=== PATIENT | female | born 1985 | race Caucasian/White ===

== ENCOUNTER 2016-05-07 16:27 | Emergency (ER) | payer OTHER ==
[2016-05-07] MEDS ORDERED: ONDANSETRON 4 MG TAB.RAPDIS PO ONE (17:09)
--- NOTE | 2016-05-07 17:11 | ER Document Report ---
ED Medical Screen (RME) - General Chief Complaint: Nausea/Vomiting/Diarrhea Stated Complaint: DIARRHEA,VOMITING,DEHYDRATION Mode of Arrival: Ambulatory Information source: Patient Notes: 31 y/o F presents to ED c/o n/v/d since approximately 0400 this morning. Denies fever or abd pain. I have greeted and performed a rapid initial assessment of this patient. A comprehensive ED assessment and evaluation of the patient, analysis of test results and completion of the medical decision making process will be conducted by additional ED providers. TRAVEL OUTSIDE OF THE [place] IN LAST 30 DAYS: No - Related Data Allergies/Adverse Reactions: No Known Allergies Allergy (Unverified 05/07/16 17:09) Physical Exam - Vital signs Vitals: Temp Pulse Resp BP Pulse Ox 98.9 F 109 H 20 138/92 H 98 05/07/16 17:00 05/07/16 17:00 05/07/16 17:00 05/07/16 17:00 05/07/16 17:00 - General General appearance: Appears well, Alert In distress: None - Respiratory Respiratory status: No respiratory distress - Cardiovascular Pulses: Normal: Radial Normal capillary refill: Yes Course - Vital Signs Vital signs: Temp Pulse Resp BP Pulse Ox 98.9 F 109 H 20 138/92 H 98 05/07/16 17:00 05/07/16 17:00 05/07/16 17:00 05/07/16 17:00 05/07/16 17:00
[2016-05-07 18:13] LABS: APPEARANCE,URINE CLOUDY; BILIRUBIN,URINE NEGATIVE (NEGATIVE); GLUCOSE, URINE NEGATIVE (NEGATIVE); KETONES,URINE NEGATIVE (NEGATIVE); LEUKOCYTE ESTERASE,URINE LARGE (NEGATIVE); NITRITE,URINE NEGATIVE (NEGATIVE); PROTEIN,URINE NEGATIVE (NEGATIVE); URINE SPECIFIC GRAVITY 1.021; UROBILINOGEN,URINE NEGATIVE mg/dL (<2.0)
[2016-05-07 18:14] LABS: ALANINE AMINOTRANSFERASE 26 U/L (9-52); ALBUMIN 4.3 g/dL (3.5-5.0); ALKALINE PHOSPHATASE 83 U/L (38-126); ANION GAP 14 (5-19); ASPARTATE AMINO TRANSFERASE 16 U/L (14-36); BILIRUBIN,TOTAL 0.8 mg/dL (0.2-1.3); BLOOD UREA NITROGEN 9 mg/dL (7-20); CALCIUM 9.6 mg/dL (8.4-10.2); CARBON DIOXIDE 19 mmol/L (22-30); CHLORIDE 104 mmol/L (98-107); CREATININE RESULT 0.61 mg/dL (0.52-1.25); GLUCOSE 123 mg/dL (75-110); LIPASE 42.8 U/L (23-300); POTASSIUM 3.8 mmol/L (3.6-5.0); SODIUM 136.8 mmol/L (137-145)
[2016-05-07 18:19] LABS: ABSOLUTE LYMPHOCYTES (AUTO) 0.5 10^3/uL (0.5-4.7); ABSOLUTE MONOCYTES (AUTO) 0.3 10^3/uL (0.1-1.4); ABSOLUTE NEUT (AUTO) 9.6 10^3/uL (1.7-8.2); BASOPHILS % (AUTO) 0.2 % (0-2); EOSINOPHILS % (AUTO) 0.2 % (0-6); HEMATOCRIT 40.5 % (36.0-47.0); HEMOGLOBIN 13.7 g/dL (12.0-15.5); HGB HCT DIFFERENCE 0.6; LYMPHOCYTES % (AUTO) 5.2 % (13-45); MEAN CORPUSCULAR HEMOGLOBIN 29.4 pg (27.0-33.4); MEAN CORPUSCULAR HGB CONC 33.8 g/dL (32.0-36.0); MEAN CORPUSCULAR VOLUME 87 fl (80-97); MONOCYTES % (AUTO) 3.1 % (3-13); RED BLOOD COUNT 4.67 10^6/uL (3.72-5.28); RED CELL DISTRIBUTION WIDTH 13.1 % (11.5-14.0); SEGMENTED NEUTROPHILS % (AUTO) 91.3 % (42-78); WHITE BLOOD COUNT 10.5 10^3/uL (4.0-10.5)
--- NOTE | 2016-05-07 19:02 | ER Document Report ---
ED General - General Chief Complaint: Nausea/Vomiting/Diarrhea Stated Complaint: DIARRHEA,VOMITING,DEHYDRATION Mode of Arrival: Ambulatory Notes: Patient is a 31-year-old female at 9 weeks who presents with 12 hours of vomiting and diarrhea which have since stopped after arriving here in the emergency department. Symptoms were abrupt in onset and gradually resolved. She has been able to tolerate oral intake. She states that she has not had similar symptoms in the recent past. Multiple sick contacts with similar illness. Denies any bilious vomiting. No abdominal pain. No vaginal bleeding or discharge. Nothing improves or worsens or symptoms. She is not had a fever. She has not seen her primary care physician regarding today's concerns. TRAVEL OUTSIDE OF THE [place] IN LAST 30 DAYS: No - Related Data Allergies/Adverse Reactions: No Known Allergies Allergy (Unverified 05/07/16 17:09) Past Medical History - General Information source: Patient Last Menstrual Period: 02/19/16 - Social History Smoking Status: Never Smoker Chew tobacco use (# tins/day): No Frequency of alcohol use: None Drug Abuse: None Lives with: Spouse/Significant other Family History: Reviewed & Not Pertinent Patient has suicidal ideation: No Patient has homicidal ideation: No - Past Medical History Cardiac Medical History: Reports: Hx Hypertension Renal/ Medical History: Denies: Hx Peritoneal Dialysis Surgical Hx: Negative Review of Systems - Review of Systems Notes: Constitutional: Negative for fever. HENT: Negative for sore throat. Eyes: Negative for visual changes. Cardiovascular: Negative for chest pain. Respiratory: Negative for shortness of breath. Gastrointestinal: Negative for abdominal pain, positive for vomiting and diarrhea that have resolved Genitourinary: Negative for dysuria. Musculoskeletal: Negative for back pain. Skin: Negative for rash. Neurological: Negative for headaches, weakness or numbness. 10 point ROS negative except as marked above and in HPI. Physical Exam - Vital signs Vitals: Temp Pulse Resp BP Pulse Ox 98.9 F 109 H 20 138/92 H 98 05/07/16 17:00 05/07/16 17:00 05/07/16 17:00 05/07/16 17:00 05/07/16 17:00 Interpretation: Tachycardic Notes: PHYSICAL EXAMINATION: GENERAL: Well-appearing, well-nourished and in no acute distress. HEAD: Atraumatic, normocephalic. EYES: Pupils equal round and reactive to light, extraocular movements intact, sclera anicteric, conjunctiva are normal. ENT: nares patent, oropharynx clear without exudates. Moist mucous membranes. NECK: Normal range of motion, supple without lymphadenopathy LUNGS: Breath sounds clear to auscultation bilaterally and equal. No wheezes rales or rhonchi. HEART: Regular rate and rhythm without murmurs ABDOMEN: Soft, nontender, normoactive bowel sounds. No guarding, no rebound. No masses appreciated. EXTREMITIES: Normal range of motion, no pitting or edema. No cyanosis. NEUROLOGICAL: No focal neurological deficits. Moves all extremities spontaneously and on command. PSYCH: Normal mood, normal affect. SKIN: Warm, Dry, normal turgor, no rashes or lesions noted. Course - Re-evaluation Re-evalutation: 05/07/16 19:01 Presentation of an overall well-appearing patient in no acute distress with complaints of nausea, vomiting, diarrhea. This is consistent with likely viral gastroenteritis. Patient has no abdominal tenderness on exam and specifically no tenderness in the RLQ, LLQ, RUQ. Overall well hydrated on exam. Able to tolerate oral intake here in the emergency department. Low clinical suspicion for any acute life-threatening etiology based on exam and history including acute cholecystitis, SBO, appendicitis, nephrolithiasis, or pylonephritis. CMP without evidence of acute hepatitis or significant dehydration. Will plan for discharge at this time with return precautions and followup recommendations. - Vital Signs Vital signs: Temp Pulse Resp BP Pulse Ox 98.9 F 95 20 141/80 H 100 05/07/16 17:00 05/07/16 19:09 05/07/16 17:00 05/07/16 19:09 05/07/16 19:09 - Laboratory Result Diagrams: 05/07/16 17:45 05/07/16 17:45 Laboratory results interpreted by me: 05/07/16 05/07/16 05/07/16 17:32 17:45 17:45 Seg Neutrophils % 91.3 H Lymphocytes % 5.2 L Absolute Neutrophils 9.6 H Sodium 136.8 L Carbon Dioxide 19 L Glucose 123 H Beta HCG, Quant 10865.00 H Ur Leukocyte Esterase LARGE H Discharge - Discharge Clinical Impression: Vomiting and diarrhea Condition: Good Disposition: HOME, SELF-CARE Additional Instructions: Your symptoms are likely due to a viral illness and should resolve in the next several days. You can take [id number] loperamide also known as Imodium as needed for diarrhea per box instructions. Continue to stay hydrated with plenty of solution such as Gatorade or Pedialyte. You are being prescribed Zofran to take as needed for nausea and vomiting. Please return if you develop severe abdominal pain, pass out, become unable to tolerate any oral fluids for 12 more hours, or any other symptoms that are concerning to you. Referrals: VANESSA MALDONADO MD [Primary Care Provider] - Follow up tomorrow
[2016-05-07 19:36] VITALS: BP 141/80
== END 2016-05-07 19:09 | disposition home or self-care (01) ==
LOC: ER 16:27
DX: O21.9 Vomiting of pregnancy, unspecified (principal); O26.891 Other specified pregnancy related conditions, first trimester; R19.7 Diarrhea, unspecified; R00.0 Tachycardia, unspecified; O16.1 Unspecified maternal hypertension, first trimester; Z3A.09 9 weeks gestation of pregnancy
CPT/HCPCS: 36415; 80053; 81001; 83690; 84702; 85025; 99283

== ENCOUNTER 2016-05-11 17:55 | Emergency (ER) | payer OTHER ==
--- NOTE | 2016-05-11 19:09 | ER Document Report ---
ED Medical Screen (RME) - General Stated Complaint: VAGINAL BLEEDING Mode of Arrival: Ambulatory Information source: Patient Notes: Patient states she is currently 10 weeks had vaginal bleeding that started today. Patient denies any abdominal tenderness. No urinary symptoms. Patient is . hx: Hypertension I have greeted and performed a rapid initial assessment of this patient. A comprehensive ED assessment and evaluation of the patient, analysis of test results and completion of the medical decision making process will be conducted by additional ED providers. TRAVEL OUTSIDE OF THE [place] IN LAST 30 DAYS: No - Related Data Allergies/Adverse Reactions: No Known Allergies Allergy (Unverified 05/07/16 17:09) Past Medical History - Past Medical History Cardiac Medical History: Reports: Hx Hypertension Renal/ Medical History: Denies: Hx Peritoneal Dialysis Physical Exam - Vital signs Vitals: Temp Pulse Resp BP Pulse Ox 97.9 F 82 16 146/94 H 99 05/11/16 18:49 05/11/16 18:49 05/11/16 18:49 05/11/16 18:49 05/11/16 18:49 - General General appearance: Appears well, Alert In distress: None Course - Re-evaluation Re-evalutation: 05/11/16 19:[address] Ramírez who agrees with plan for ultrasound - Vital Signs Vital signs: Temp Pulse Resp BP Pulse Ox 97.9 F 82 16 146/94 H 99 05/11/16 18:49 05/11/16 18:49 05/11/16 18:49 05/11/16 18:49 05/11/16 18:49
[2016-05-11 19:53] LABS: ABSOLUTE EOSINOPHILS # (AUTO) 0.1 10^3/uL (0.0-0.6); ABSOLUTE LYMPHOCYTES (AUTO) 2.1 10^3/uL (0.5-4.7); ABSOLUTE MONOCYTES (AUTO) 0.6 10^3/uL (0.1-1.4); ABSOLUTE NEUT (AUTO) 6.5 10^3/uL (1.7-8.2); BASOPHILS % (AUTO) 0.3 % (0-2); EOSINOPHILS % (AUTO) 1.5 % (0-6); HEMATOCRIT 41.7 % (36.0-47.0); HEMOGLOBIN 14.1 g/dL (12.0-15.5); HGB HCT DIFFERENCE 0.6; LYMPHOCYTES % (AUTO) 22.7 % (13-45); MEAN CORPUSCULAR HEMOGLOBIN 29.1 pg (27.0-33.4); MEAN CORPUSCULAR HGB CONC 33.9 g/dL (32.0-36.0); MEAN CORPUSCULAR VOLUME 86 fl (80-97); RED BLOOD COUNT 4.85 10^6/uL (3.72-5.28); RED CELL DISTRIBUTION WIDTH 13.2 % (11.5-14.0); SEGMENTED NEUTROPHILS % (AUTO) 69.5 % (42-78); WHITE BLOOD COUNT 9.4 10^3/uL (4.0-10.5)
[2016-05-11 20:04] LABS: ALANINE AMINOTRANSFERASE 83 U/L (9-52); ALBUMIN 4.1 g/dL (3.5-5.0); ALKALINE PHOSPHATASE 113 U/L (38-126); ANION GAP 16 (5-19); ASPARTATE AMINO TRANSFERASE 62 U/L (14-36); BILIRUBIN,TOTAL 0.5 mg/dL (0.2-1.3); BLOOD UREA NITROGEN 10 mg/dL (7-20); CALCIUM 10.4 mg/dL (8.4-10.2); CARBON DIOXIDE 20 mmol/L (22-30); CHLORIDE 103 mmol/L (98-107); CREATININE RESULT 0.65 mg/dL (0.52-1.25); GLUCOSE 100 mg/dL (75-110); POTASSIUM 3.4 mmol/L (3.6-5.0); SODIUM 139.4 mmol/L (137-145); TOTAL PROTEIN 7.6 g/dL (6.3-8.2)
--- NOTE | 2016-05-11 22:44 | ER Document Report ---
ED General - General Mode of Arrival: Ambulatory Information source: Patient TRAVEL OUTSIDE OF THE [place] IN LAST 30 DAYS: No - HPI Patient complains to provider of: Vaginal Bleeding Onset: This afternoon - ~1700 Onset/Duration: Sudden Quality of pain: No pain Associated symptoms: None <CHRISTOPHER ASHTON - Last Filed: 05/11/16 23:21> <ROHINIGLORIA ANN - Last Filed: 05/12/16 04:28> - General Chief Complaint: Vag Bleeding, +preg <12wks Stated Complaint: VAGINAL BLEEDING Notes: Patient is a 31 y/o 10 week female presenting to the emergency department concerned of irregular vaginal bleeding onset at approximately 1700 this afternoon. Patient states that the bleeding has stopped since coming into the emergency department and denies and abdominal pain or recent intercourse. Patient states that she has been sick with a stomach virus (diarrhea) 05/07/2016-, but that is now resolved as well. (CHRISTOPHER ASHTON) - HPI Context: (CHRISTOPHER ASHTON) - Related Data Allergies/Adverse Reactions: No Known Allergies Allergy (Unverified 05/07/16 17:09) Past Medical History - General Information source: Patient - Social History Smoking Status: Unknown if Ever Smoked Family History: Reviewed & Not Pertinent Patient has suicidal ideation: No Patient has homicidal ideation: No - Past Medical History Cardiac Medical History: Reports: Hx Hypertension <CHRISTOPHER ASHTON - Last Filed: 05/11/16 23:21> Review of Systems - Review of Systems Constitutional: No symptoms reported EENT: No symptoms reported Cardiovascular: No symptoms reported Respiratory: No symptoms reported Gastrointestinal: No symptoms reported Genitourinary: No symptoms reported Female Genitourinary: See HPI, , Vaginal bleeding Musculoskeletal: No symptoms reported Skin: No symptoms reported Hematologic/Lymphatic: No symptoms reported Neurological/Psychological: No symptoms reported -: Yes All other systems reviewed and negative <CHRISTOPHER ASHTON - Last Filed: 05/11/16 23:21> Physical Exam - General General appearance: Alert - HEENT Head: Normocephalic, Atraumatic Eyes: Normal Extraocular movements intact: Yes - Respiratory Respiratory status: No respiratory distress Chest status: Nontender Breath sounds: Normal Chest palpation: Normal - Cardiovascular Rhythm: Regular Heart sounds: Normal auscultation Murmur: No - Abdominal Inspection: Obese Distension: No distension Tenderness: Nontender - Back Back: Normal, Nontender - Extremities General upper extremity: Normal inspection, Nontender, Normal ROM General lower extremity: Normal inspection, Nontender, Normal ROM, Normal weight bearing - Neurological Neuro grossly intact: Yes Cognition: Normal [place] Coma Scale Eye Opening: Spontaneous [place] Coma Scale Verbal: Oriented [place] Coma Scale Motor: Obeys Commands [place] Coma Scale Total: 15 Speech: Normal - Psychological Associated symptoms: Normal affect, Normal mood - Skin Skin Temperature: Warm Skin Moisture: Dry Skin Color: Normal <CHRISTOPHER ASHTON - Last Filed: 05/11/16 23:21> Course - Laboratory Result Diagrams: 05/11/16 19:15 05/11/16 19:15 <CHRISTOPHER ASHTON - Last Filed: 05/11/16 23:21> - Laboratory Result Diagrams: 05/11/16 19:15 05/11/16 19:15 - Diagnostic Test Radiology reviewed: Reports reviewed <GLORIA NOVA - Last Filed: 05/12/16 04:28> - Re-evaluation Re-evalutation: 05/11 Patient with normal ultrasound. No pain at this time. No bleeding at this time. Blood work and vitals within normal limits. Patient will be discharged home to follow-up with her [facility]. Understands agrees with plan. Stable for discharge home. (GLORIA NOVA) - Vital Signs Vital signs: Temp Pulse Resp BP Pulse Ox 97.9 F 82 16 146/94 H 99 05/11/16 18:49 05/11/16 18:49 05/11/16 18:49 05/11/16 18:49 05/11/16 18:49 (CHRISTOPHER ASHTON) (GLORIA NOVA) - Laboratory Laboratory results interpreted by me: 05/11/16 19:15 Potassium 3.4 L Carbon Dioxide 20 L Calcium 10.4 H AST 62 H ALT 83 H (CHRISTOPHER ASHTON) (GLORIA NOVA) Discharge <CHRISTOPHER ASHTON - Last Filed: 05/11/16 23:21> <GLORIA NOVA - Last Filed: 05/12/16 04:28> - Discharge Clinical Impression: Vaginal bleeding in Qualifiers: Trimester: first trimester Qualified Code(s): O46.91 - Antepartum hemorrhage, unspecified, first trimester Qualifiers: Weeks of gestation: 10 weeks Qualified Code(s): Z3A.10 - 10 weeks gestation of Condition: Stable Disposition: HOME, SELF-CARE Instructions: Bleeding During Early ([facility]), ([facility]) Additional Instructions: Make sure you are drinking plenty of fluids. Please follow-up with your doctor this week. Scribe Attestation: 05/12/16 04:28 I personally performed the services described in the documentation, reviewed and edited the documentation which was dictated to the scribe in my presence, and it accurately records my words and actions. (GLORIA NOVA) Scribe Documentation - Scribe Written by Pepe:: Christopher Ashton 05/11/2016 acting as scribe for :: Rohini <CHRISTOPHER ASHTON - Last Filed: 05/11/16 23:21>
--- NOTE | 2016-05-11 22:44 | ER Document Report ---
ED GI/ - General Chief Complaint: Vag Bleeding, +preg <12wks Stated Complaint: VAGINAL BLEEDING Mode of Arrival: Ambulatory TRAVEL OUTSIDE OF THE [place] IN LAST 30 DAYS: No - Related Data Allergies/Adverse Reactions: No Known Allergies Allergy (Unverified 05/07/16 17:09) Past Medical History - General Information source: Patient - Social History Smoking Status: Unknown if Ever Smoked Family History: Reviewed & Not Pertinent Patient has suicidal ideation: No Patient has homicidal ideation: No - Past Medical History Cardiac Medical History: Reports: Hx Hypertension Renal/ Medical History: Denies: Hx Peritoneal Dialysis Physical Exam - Vital signs Vitals: Temp Pulse Resp BP Pulse Ox 97.9 F 82 16 146/94 H 99 05/11/16 18:49 05/11/16 18:49 05/11/16 18:49 05/11/16 18:49 05/11/16 18:49 Course - Vital Signs Vital signs: Temp Pulse Resp BP Pulse Ox 97.9 F 82 16 146/94 H 99 05/11/16 18:49 05/11/16 18:49 05/11/16 18:49 05/11/16 18:49 05/11/16 18:49 - Laboratory Result Diagrams: 05/11/16 19:15 05/11/16 19:15 Laboratory results interpreted by me: 05/11/16 19:15 Potassium 3.4 L Carbon Dioxide 20 L Calcium 10.4 H AST 62 H ALT 83 H Discharge - Discharge Clinical Impression: Vaginal bleeding in , Condition: Stable Disposition: HOME, SELF-CARE Instructions: Bleeding During Early ([facility]), ([facility]) Additional Instructions: Make sure you are drinking plenty of fluids. Please follow-up with your doctor this week.
[2016-05-12 07:09] VITALS: BP 142/86
== END 2016-05-11 22:54 | disposition home or self-care (01) ==
LOC: ER 17:55
DX: O20.9 Hemorrhage in early pregnancy, unspecified (principal); O16.1 Unspecified maternal hypertension, first trimester; Z3A.10 10 weeks gestation of pregnancy
CPT/HCPCS: 36415; 76817; 80053; 85025; 86900; 86901; 99284

== ENCOUNTER 2016-10-16 15:58 | Outpatient (CLI) | payer OTHER ==
[2016-10-16 16:56] LABS: ABSOLUTE BASOPHILS # (AUTO) 0.1 10^3/uL (0.0-0.2); ABSOLUTE EOSINOPHILS # (AUTO) 0.2 10^3/uL (0.0-0.6); ABSOLUTE MONOCYTES (AUTO) 0.4 10^3/uL (0.1-1.4); ABSOLUTE NEUT (AUTO) 7.9 10^3/uL (1.7-8.2); BASOPHILS % (AUTO) 0.5 % (0-2); EOSINOPHILS % (AUTO) 1.5 % (0-6); HEMATOCRIT 33.8 % (36.0-47.0); HEMOGLOBIN 11.1 g/dL (12.0-15.5); HGB HCT DIFFERENCE -0.5; LYMPHOCYTES % (AUTO) 19.3 % (13-45); MEAN CORPUSCULAR HEMOGLOBIN 29.2 pg (27.0-33.4); MEAN CORPUSCULAR HGB CONC 32.9 g/dL (32.0-36.0); MEAN CORPUSCULAR VOLUME 89 fl (80-97); MONOCYTES % (AUTO) 3.9 % (3-13); RED BLOOD COUNT 3.81 10^6/uL (3.72-5.28); RED CELL DISTRIBUTION WIDTH 13.3 % (11.5-14.0); SEGMENTED NEUTROPHILS % (AUTO) 74.8 % (42-78); WHITE BLOOD COUNT 10.6 10^3/uL (4.0-10.5)
[2016-10-16 17:12] LABS: ALANINE AMINOTRANSFERASE 42 U/L (9-52); ALBUMIN 3.6 g/dL (3.5-5.0); ALKALINE PHOSPHATASE 125 U/L (38-126); ANION GAP 10 (5-19); ASPARTATE AMINO TRANSFERASE 20 U/L (14-36); BILIRUBIN,DIRECT 0.2 mg/dL (0.0-0.4); BILIRUBIN,TOTAL 0.4 mg/dL (0.2-1.3); BLOOD UREA NITROGEN 11 mg/dL (7-20); CALCIUM 9.6 mg/dL (8.4-10.2); CARBON DIOXIDE 21 mmol/L (22-30); CHLORIDE 106 mmol/L (98-107); CREATININE RESULT 0.65 mg/dL (0.52-1.25); GLUCOSE 113 mg/dL (75-110); LDH 315 U/L (313-618); POTASSIUM 3.7 mmol/L (3.6-5.0); SODIUM 137.2 mmol/L (137-145); TOTAL PROTEIN 6.7 g/dL (6.3-8.2); URIC ACID 4.5 mg/dL (2.5-6.2)
[2016-10-16 17:15] LABS: APPEARANCE,URINE CLEAR; BILIRUBIN,URINE NEGATIVE (NEGATIVE); GLUCOSE, URINE NEGATIVE (NEGATIVE); KETONES,URINE NEGATIVE (NEGATIVE); LEUKOCYTE ESTERASE,URINE NEGATIVE (NEGATIVE); NITRITE,URINE NEGATIVE (NEGATIVE); PROTEIN,URINE NEGATIVE (NEGATIVE); URINE SPECIFIC GRAVITY 1.002; UROBILINOGEN,URINE NEGATIVE mg/dL (<2.0)
--- NOTE | 2016-10-16 17:15 | Non Stress Test Report ---
Non Stress Test Datetime Report Generated by CPN: 10/16/2016 17:15 DEMOGRAPHIC EGA NST: 32.2 MONITORING Monitor Explained: Monitor Explained; Test Explained; Patient Verbalized Understanding Time on Monitor: 10/16/2016 16:15 Time off Monitor: 10/16/2016 17:14 NST Duration: 59 NST INTERVENTIONS NST Interventions: PO Hydration Physician Notified NST: Dr. Larson BABY A: [id number] BABY A Movement : Present Contraction Frequency : irregular FHR Baseline : 135 Accelerations : 15X15 Decelerations : None Variability : Moderate 6-25bpm NST Review: Meets Criteria for Reactive NST NST Review and Verified By : D Bellavancmarsha RNC NST Results: Non-Reactive NST REPORT Report Trigger: Send Report
[2016-10-16 17:31] LABS: URINE BARBITURATES SCREEN NEGATIVE; URINE METHADONE SCREEN NEGATIVE; URINE OPIATES LOW NEGATIVE; URINE PHENCYCLIDINE SCREEN NEGATIVE
[2016-10-16 17:35] LABS: URINE PROTEIN 14.5 mg/dL (<12)
== END 2016-10-16 17:59 | disposition home or self-care (01) ==
LOC: LC 15:58
PROVIDERS: ATTEND Obstetrics & Gynecology
DX: O26.93 Pregnancy related conditions, unspecified, third trimester (principal); Z3A.32 32 weeks gestation of pregnancy
CPT/HCPCS: 36415; 59025; 80053; 80307; 81001; 82570; 83615; 84156; 84550; 85025

== ENCOUNTER 2016-10-30 10:47 | Outpatient (CLI) | payer OTHER ==
[2016-10-30 11:25] LABS: ABSOLUTE EOSINOPHILS # (AUTO) 0.1 10^3/uL (0.0-0.6); ABSOLUTE LYMPHOCYTES (AUTO) 1.8 10^3/uL (0.5-4.7); ABSOLUTE MONOCYTES (AUTO) 0.5 10^3/uL (0.1-1.4); ABSOLUTE NEUT (AUTO) 7.5 10^3/uL (1.7-8.2); BASOPHILS % (AUTO) 0.2 % (0-2); EOSINOPHILS % (AUTO) 0.9 % (0-6); HEMATOCRIT 34.3 % (36.0-47.0); HEMOGLOBIN 11.8 g/dL (12.0-15.5); HGB HCT DIFFERENCE 1.1; LYMPHOCYTES % (AUTO) 17.8 % (13-45); MEAN CORPUSCULAR HEMOGLOBIN 30.3 pg (27.0-33.4); MEAN CORPUSCULAR HGB CONC 34.4 g/dL (32.0-36.0); MEAN CORPUSCULAR VOLUME 88 fl (80-97); MONOCYTES % (AUTO) 4.8 % (3-13); RED BLOOD COUNT 3.89 10^6/uL (3.72-5.28); RED CELL DISTRIBUTION WIDTH 13.6 % (11.5-14.0); SEGMENTED NEUTROPHILS % (AUTO) 76.3 % (42-78); WHITE BLOOD COUNT 9.9 10^3/uL (4.0-10.5)
[2016-10-30 11:32] LABS: URINE CREATININE 46.8 mg/dL (16-327); URINE PROTEIN 13.7 mg/dL (<12)
[2016-10-30 11:33] LABS: ALANINE AMINOTRANSFERASE 44 U/L (9-52); ALBUMIN 3.8 g/dL (3.5-5.0); ALKALINE PHOSPHATASE 142 U/L (38-126); ANION GAP 10 (5-19); ASPARTATE AMINO TRANSFERASE 22 U/L (14-36); BILIRUBIN,DIRECT 0.2 mg/dL (0.0-0.4); BILIRUBIN,TOTAL 0.4 mg/dL (0.2-1.3); BLOOD UREA NITROGEN 11 mg/dL (7-20); CALCIUM 9.3 mg/dL (8.4-10.2); CARBON DIOXIDE 19 mmol/L (22-30); CHLORIDE 108 mmol/L (98-107); CREATININE RESULT 0.74 mg/dL (0.52-1.25); GLUCOSE 97 mg/dL (75-110); LDH 329 U/L (313-618); POTASSIUM 4.7 mmol/L (3.6-5.0); URIC ACID 5.5 mg/dL (2.5-6.2)
--- NOTE | 2016-10-30 11:38 | Non Stress Test Report ---
Non Stress Test Datetime Report Generated by CPN: 10/30/2016 11:38 DEMOGRAPHIC EGA NST: 34.2 INDICATION Indication for Study: Chronic Hypertension; Ordered by Provider MONITORING Monitor Explained: Monitor Explained; Test Explained; Patient Verbalized Understanding Time on Monitor: 10/30/2016 11:04 Time off Monitor: 10/30/2016 11:36 NST Duration: 32 NST INTERVENTIONS NST Interventions: PO Hydration; Reposition Patient Physician Notified NST: H Michael CNM BABY A: [id number] BABY A Movement : Present Contraction Frequency : none Accelerations : 15X15 Variability : Moderate 6-25bpm NST Review: Meets Criteria for Reactive NST NST Review and Verified By : Dianne Lott RNC NST Results: Reactive NST REPORT Report Trigger: Send Report
[2016-10-30 11:50] LABS: APPEARANCE,URINE CLEAR; BILIRUBIN,URINE NEGATIVE (NEGATIVE); GLUCOSE, URINE NEGATIVE (NEGATIVE); KETONES,URINE NEGATIVE (NEGATIVE); LEUKOCYTE ESTERASE,URINE MODERATE (NEGATIVE); NITRITE,URINE NEGATIVE (NEGATIVE); PROTEIN,URINE NEGATIVE (NEGATIVE); URINE SPECIFIC GRAVITY 1.004; UROBILINOGEN,URINE NEGATIVE mg/dL (<2.0)
[2016-10-30 12:21] LABS: URINE BARBITURATES SCREEN NEGATIVE; URINE METHADONE SCREEN NEGATIVE; URINE OPIATES LOW NEGATIVE; URINE PHENCYCLIDINE SCREEN NEGATIVE
== END 2016-10-30 11:41 | disposition home or self-care (01) ==
LOC: LC 10:47
PROVIDERS: ATTEND Specialist
PROC: 4A1HXCZ Monitoring of Products of Conception, Cardiac Rate, External Approach (ICD-10-PCS; principal; 2016-10-30)
DX: O14.93 Unspecified pre-eclampsia, third trimester (principal); Z3A.34 34 weeks gestation of pregnancy
CPT/HCPCS: 36415; 59025; 80053; 80307; 81001; 82570; 83615; 84156; 84550; 85025

== ENCOUNTER 2016-11-17 10:27 | Outpatient (CLI) | payer OTHER ==
[2016-11-17 11:04] LABS: APPEARANCE,URINE SLIGHTLY-CLOUDY; BILIRUBIN,URINE NEGATIVE (NEGATIVE); GLUCOSE, URINE NEGATIVE (NEGATIVE); KETONES,URINE NEGATIVE (NEGATIVE); LEUKOCYTE ESTERASE,URINE MODERATE (NEGATIVE); NITRITE,URINE NEGATIVE (NEGATIVE); PROTEIN,URINE NEGATIVE (NEGATIVE); URINE SPECIFIC GRAVITY 1.002; UROBILINOGEN,URINE NEGATIVE mg/dL (<2.0)
[2016-11-17 11:23] LABS: URINE BARBITURATES SCREEN NEGATIVE; URINE METHADONE SCREEN NEGATIVE; URINE OPIATES LOW NEGATIVE; URINE PHENCYCLIDINE SCREEN NEGATIVE
[2016-11-17 11:32] LABS: URINE CREATININE 28.7 mg/dL (16-327); URINE PROTEIN 14.6 mg/dL (<12)
[2016-11-17 12:12] LABS: ABSOLUTE EOSINOPHILS # (AUTO) 0.1 10^3/uL (0.0-0.6); ABSOLUTE LYMPHOCYTES (AUTO) 2.1 10^3/uL (0.5-4.7); ABSOLUTE MONOCYTES (AUTO) 0.5 10^3/uL (0.1-1.4); ABSOLUTE NEUT (AUTO) 7.8 10^3/uL (1.7-8.2); BASOPHILS % (AUTO) 0.4 % (0-2); EOSINOPHILS % (AUTO) 1.3 % (0-6); HEMATOCRIT 32.5 % (36.0-47.0); HGB HCT DIFFERENCE 0.5; LYMPHOCYTES % (AUTO) 19.7 % (13-45); MEAN CORPUSCULAR HEMOGLOBIN 30.2 pg (27.0-33.4); MEAN CORPUSCULAR VOLUME 89 fl (80-97); MONOCYTES % (AUTO) 4.4 % (3-13); RED BLOOD COUNT 3.65 10^6/uL (3.72-5.28); RED CELL DISTRIBUTION WIDTH 13.6 % (11.5-14.0); SEGMENTED NEUTROPHILS % (AUTO) 74.2 % (42-78); WHITE BLOOD COUNT 10.5 10^3/uL (4.0-10.5)
[2016-11-17 13:21] LABS: ALANINE AMINOTRANSFERASE 29 U/L (9-52); ALBUMIN 3.7 g/dL (3.5-5.0); ALKALINE PHOSPHATASE 128 U/L (38-126); ANION GAP 8 (5-19); ASPARTATE AMINO TRANSFERASE 20 U/L (14-36); BILIRUBIN,DIRECT 0.3 mg/dL (0.0-0.4); BILIRUBIN,TOTAL 0.4 mg/dL (0.2-1.3); BLOOD UREA NITROGEN 16 mg/dL (7-20); CALCIUM 9.8 mg/dL (8.4-10.2); CARBON DIOXIDE 22 mmol/L (22-30); CHLORIDE 105 mmol/L (98-107); CREATININE RESULT 0.84 mg/dL (0.52-1.25); GLUCOSE 80 mg/dL (75-110); LDH 370 U/L (313-618); POTASSIUM 4.5 mmol/L (3.6-5.0); SODIUM 135.3 mmol/L (137-145); TOTAL PROTEIN 6.9 g/dL (6.3-8.2)
== END 2016-11-17 13:50 | disposition home or self-care (01) ==
LOC: LC 10:27
PROVIDERS: ATTEND Obstetrics & Gynecology
PROC: 4A1HXCZ Monitoring of Products of Conception, Cardiac Rate, External Approach (ICD-10-PCS; principal; 2016-11-17)
DX: Z36 Encounter for antenatal screening of mother (principal); Z3A.36 36 weeks gestation of pregnancy
CPT/HCPCS: 36415; 59025; 80053; 80307; 81001; 82570; 83615; 84156; 84550; 85025

== ENCOUNTER 2016-11-20 10:22 | Outpatient (CLI) | payer OTHER ==
--- NOTE | 2016-11-20 10:33 | Non Stress Test Report ---
Non Stress Test Datetime Report Generated by CPN: 11/20/2016 10:32 DEMOGRAPHIC EGA NST: 36.6 INDICATION Indication for Study: Ordered by Provider MONITORING Monitor Explained: Monitor Explained; Test Explained; Patient Verbalized Understanding Time on Monitor: 11/17/2016 10:42 Time off Monitor: 11/17/2016 12:23 NST Duration: 101 NST INTERVENTIONS NST Interventions: None Physician Notified NST: C. Parr, CNM BABY A: [id number] BABY A Movement : Present Contraction Frequency : none FHR Baseline : 125 Accelerations : 15X15 Decelerations : None Variability : Moderate 6-25bpm NST Review: Meets Criteria for Reactive NST NST Review and Verified By : Neal Singh RN NST Results: Reactive NST REPORT Report Trigger: Send Report
[2016-11-20 11:21] LABS: APPEARANCE,URINE CLEAR; BILIRUBIN,URINE NEGATIVE (NEGATIVE); GLUCOSE, URINE NEGATIVE (NEGATIVE); KETONES,URINE NEGATIVE (NEGATIVE); LEUKOCYTE ESTERASE,URINE SMALL (NEGATIVE); NITRITE,URINE NEGATIVE (NEGATIVE); PROTEIN,URINE NEGATIVE (NEGATIVE); URINE SPECIFIC GRAVITY 1.002; UROBILINOGEN,URINE NEGATIVE mg/dL (<2.0)
[2016-11-20 11:48] LABS: URINE BARBITURATES SCREEN NEGATIVE; URINE METHADONE SCREEN NEGATIVE; URINE OPIATES LOW NEGATIVE; URINE PHENCYCLIDINE SCREEN NEGATIVE
[2016-11-20 11:53] LABS: ABSOLUTE LYMPHOCYTES (AUTO) 1.6 10^3/uL (0.5-4.7); ABSOLUTE MONOCYTES (AUTO) 0.6 10^3/uL (0.1-1.4); ABSOLUTE NEUT (AUTO) 5.9 10^3/uL (1.7-8.2); BASOPHILS % (AUTO) 0.4 % (0-2); EOSINOPHILS % (AUTO) 0.5 % (0-6); HEMATOCRIT 34.1 % (36.0-47.0); HEMOGLOBIN 11.6 g/dL (12.0-15.5); HGB HCT DIFFERENCE 0.7; LYMPHOCYTES % (AUTO) 19.7 % (13-45); MEAN CORPUSCULAR HEMOGLOBIN 30.1 pg (27.0-33.4); MEAN CORPUSCULAR VOLUME 89 fl (80-97); MONOCYTES % (AUTO) 7.3 % (3-13); RED BLOOD COUNT 3.85 10^6/uL (3.72-5.28); RED CELL DISTRIBUTION WIDTH 13.9 % (11.5-14.0); SEGMENTED NEUTROPHILS % (AUTO) 72.1 % (42-78); WHITE BLOOD COUNT 8.2 10^3/uL (4.0-10.5)
[2016-11-20 12:08] LABS: URINE CREATININE 24.4 mg/dL (16-327); URINE PROTEIN 15.4 mg/dL (<12)
[2016-11-20 12:16] LABS: ALANINE AMINOTRANSFERASE 30 U/L (9-52); ALBUMIN 3.6 g/dL (3.5-5.0); ALKALINE PHOSPHATASE 133 U/L (38-126); ANION GAP 11 (5-19); ASPARTATE AMINO TRANSFERASE 20 U/L (14-36); BILIRUBIN,DIRECT 0.3 mg/dL (0.0-0.4); BILIRUBIN,TOTAL 0.4 mg/dL (0.2-1.3); BLOOD UREA NITROGEN 15 mg/dL (7-20); CALCIUM 9.9 mg/dL (8.4-10.2); CARBON DIOXIDE 19 mmol/L (22-30); CHLORIDE 105 mmol/L (98-107); CREATININE RESULT 0.91 mg/dL (0.52-1.25); GLUCOSE 89 mg/dL (75-110); LDH 371 U/L (313-618); POTASSIUM 4.5 mmol/L (3.6-5.0); SODIUM 135.2 mmol/L (137-145); TOTAL PROTEIN 6.8 g/dL (6.3-8.2); URIC ACID 7.8 mg/dL (2.5-6.2)
== END 2016-11-20 12:47 | disposition home or self-care (01) ==
LOC: LC 10:22
PROVIDERS: ATTEND Student in an Organized Health Care Education/Training Program
PROC: 4A1HXCZ Monitoring of Products of Conception, Cardiac Rate, External Approach (ICD-10-PCS; principal; 2016-11-20)
DX: O10.913 Unspecified pre-existing hypertension complicating pregnancy, third trimester (principal); Z3A.37 37 weeks gestation of pregnancy
CPT/HCPCS: 36415; 59025; 80053; 80307; 81001; 82570; 83615; 84156; 84550; 85025

== ENCOUNTER 2016-11-22 17:53 | Inpatient (IN) | payer OTHER ==
[2016-11-22] MEDS ORDERED: DINOPROSTONE 10 MG VAGINAL INSERT.SR PV PRN (18:02)
[2016-11-22] MEDS ORDERED: RINGERS SOLUTION,LACTATED 1,000 ML IV PRN (18:02)
[2016-11-22] MEDS ORDERED: OXYTOCIN/NORMAL SALINE 20 UNIT/1,000 ML RTUINJ IV PRN (18:02)
[2016-11-22] MEDS ORDERED: RINGERS SOLUTION,LACTATED 300 ML IV ONE (18:02)
[2016-11-22 18:27] LABS: APPEARANCE,URINE CLEAR; BILIRUBIN,URINE NEGATIVE (NEGATIVE); GLUCOSE, URINE NEGATIVE (NEGATIVE); KETONES,URINE NEGATIVE (NEGATIVE); LEUKOCYTE ESTERASE,URINE MODERATE (NEGATIVE); NITRITE,URINE NEGATIVE (NEGATIVE); PROTEIN,URINE NEGATIVE (NEGATIVE); URINE SPECIFIC GRAVITY 1.003; UROBILINOGEN,URINE NEGATIVE mg/dL (<2.0)
[2016-11-22 18:43] LABS: URINE BARBITURATES SCREEN NEGATIVE; URINE METHADONE SCREEN NEGATIVE; URINE OPIATES LOW NEGATIVE; URINE PHENCYCLIDINE SCREEN NEGATIVE
[2016-11-22 18:46] LABS: ABSOLUTE BASOPHILS # (AUTO) 0.1 10^3/uL (0.0-0.2); ABSOLUTE EOSINOPHILS # (AUTO) 0.1 10^3/uL (0.0-0.6); ABSOLUTE LYMPHOCYTES (AUTO) 2.8 10^3/uL (0.5-4.7); ABSOLUTE MONOCYTES (AUTO) 0.5 10^3/uL (0.1-1.4); ABSOLUTE NEUT (AUTO) 6.9 10^3/uL (1.7-8.2); BASOPHILS % (AUTO) 0.9 % (0-2); EOSINOPHILS % (AUTO) 0.9 % (0-6); HEMATOCRIT 34.8 % (36.0-47.0); HEMOGLOBIN 11.9 g/dL (12.0-15.5); HGB HCT DIFFERENCE 0.9; LYMPHOCYTES % (AUTO) 26.6 % (13-45); MEAN CORPUSCULAR HEMOGLOBIN 30.1 pg (27.0-33.4); MEAN CORPUSCULAR HGB CONC 34.2 g/dL (32.0-36.0); MEAN CORPUSCULAR VOLUME 88 fl (80-97); MONOCYTES % (AUTO) 4.9 % (3-13); RED BLOOD COUNT 3.95 10^6/uL (3.72-5.28); RED CELL DISTRIBUTION WIDTH 13.8 % (11.5-14.0); SEGMENTED NEUTROPHILS % (AUTO) 66.7 % (42-78); WHITE BLOOD COUNT 10.4 10^3/uL (4.0-10.5)
[2016-11-22 18:53] LABS: ALANINE AMINOTRANSFERASE 37 U/L (9-52); ALBUMIN 4.1 g/dL (3.5-5.0); ALKALINE PHOSPHATASE 141 U/L (38-126); ANION GAP 9 (5-19); ASPARTATE AMINO TRANSFERASE 21 U/L (14-36); BILIRUBIN,DIRECT 0.3 mg/dL (0.0-0.4); BILIRUBIN,TOTAL 0.4 mg/dL (0.2-1.3); BLOOD UREA NITROGEN 18 mg/dL (7-20); CALCIUM 10.6 mg/dL (8.4-10.2); CARBON DIOXIDE 21 mmol/L (22-30); CHLORIDE 104 mmol/L (98-107); CREATININE RESULT 1.01 mg/dL (0.52-1.25); GLUCOSE 74 mg/dL (75-110); LDH 412 U/L (313-618); POTASSIUM 4.7 mmol/L (3.6-5.0); SODIUM 134.2 mmol/L (137-145); TOTAL PROTEIN 7.3 g/dL (6.3-8.2); URIC ACID 7.4 mg/dL (2.5-6.2)
[2016-11-22] MEDS ORDERED: DINOPROSTONE 10 MG VAGINAL INSERT.SR ONE (22:09)
[2016-11-22] MEDS ORDERED: HYDRALAZINE HCL INJ/PF 20 MG/1 ML SDV IV ONE (22:13)
[2016-11-22] MEDS ORDERED: HYDRALAZINE HCL INJ/PF 20 MG/1 ML SDV ONE (22:20)
[2016-11-22] MEDS ORDERED: PENICILLIN G-K 5 MILLION UNIT VIAL ONE (23:07)
[2016-11-23] MEDS ORDERED: ACETAMINOPHEN 325 MG TABLET ONE (03:05)
[2016-11-23] MEDS ORDERED: PENICILLIN G POTASSIUM 5,000,000 UNIT in DEXTROSE 5%-WATER 100 ML IV ONE (07:00)
[2016-11-23] MEDS ORDERED: PENICILLIN G POTASSIUM 2,500,000 UNIT in DEXTROSE 5%-WATER 50 ML IV SCH (07:00)
[2016-11-23] MEDS ORDERED: NIFEDIPINE 30 MG TAB.ER.24 PO ONE (07:43)
[2016-11-23] MEDS ORDERED: OXYTOCIN/NORMAL SALINE 20 UNIT/1,000 ML RTUINJ ONE (11:55)
[2016-11-23] MEDS ORDERED: PENICILLIN G-K 5 MILLION UNIT VIAL ONE ×4 (11:55→23:58)
[2016-11-23] MEDS: PENICILLIN G-K 5 MILLION UNIT VIAL IV SCH ×2 (15:56→19:52)
[2016-11-23] MEDS ORDERED: HYDRALAZINE HCL INJ/PF 20 MG/1 ML SDV IV PRN (20:36)
[2016-11-24] MEDS ORDERED: NALBUPHINE HCL INJ 10 MG/1 ML AMPULE ONE (00:18)
[2016-11-24] MEDS ORDERED: ONDANSETRON HCL INJ/PF 4 MG/2 ML SDV IV PRN ×2 (00:32→23:29)
[2016-11-24] MEDS ORDERED: NALBUPHINE HCL INJ 10 MG/1 ML AMPULE IV PRN (00:33)
[2016-11-24] MEDS ORDERED: LIDOCAINE 1% INJ-PF (10 MG/ML) 30 ML SDV ONE (02:14)
[2016-11-24] MEDS ORDERED: MISOPROSTOL 0.2 MG TABLET ONE (02:14)
[2016-11-24] MEDS ORDERED: OXYTOCIN/NORMAL SALINE 0 UNIT/0 ML RTUINJ ONE (02:14)
[2016-11-24] MEDS ORDERED: PENICILLIN G-K 5 MILLION UNIT VIAL ONE ×4 (03:53→16:06)
[2016-11-24] MEDS: PENICILLIN G-K 5 MILLION UNIT VIAL IV SCH ×5 (03:55→16:11)
[2016-11-24] MEDS ORDERED: NIFEDIPINE 30 MG TAB.ER.24 PO ONE (07:30)
[2016-11-24] MEDS ORDERED: PROMETHAZINE HCL INJ 25 MG/1 ML VIAL IV ONE (07:50)
[2016-11-24] MEDS ORDERED: MORPHINE SULFATE 10 MG/ML INJ IV ONE (07:50)
[2016-11-24] MEDS ORDERED: MORPHINE SULFATE 10 MG/ML INJ ONE ×2 (07:59→21:37)
[2016-11-24] MEDS ORDERED: PROMETHAZINE HCL INJ 25 MG/1 ML VIAL ONE (07:59)
[2016-11-24] MEDS ORDERED: HYDRALAZINE HCL INJ/PF 20 MG/1 ML SDV ONE ×3 (09:44→23:44)
[2016-11-24] MEDS ORDERED: HYDRALAZINE HCL INJ/PF 20 MG/1 ML SDV IV ONE (10:21)
[2016-11-24] MEDS ORDERED: ACETAMINOPHEN 325 MG TABLET ONE (12:15)
[2016-11-24] MEDS ORDERED: ACETAMINOPHEN 325 MG TABLET PO ONE (12:19)
[2016-11-24] MEDS ORDERED: EPHEDRINE SULFATE INJ 50 MG/1 ML AMPULE ONE (13:25)
[2016-11-24] MEDS ORDERED: BUPIVACAINE HCL 0.25 % INJ/PF (2.5 MG/1 ML) 30 ML VIAL ONE (13:26)
[2016-11-24] MEDS ORDERED: FENTANYL/BUPIVACAINE/NS/PF 200 MCG/100 ML RTUINJ EPI ONE (13:26)
[2016-11-24 13:55] LABS: ALANINE AMINOTRANSFERASE 34 U/L (9-52); ALBUMIN 3.2 g/dL (3.5-5.0); ALKALINE PHOSPHATASE 141 U/L (38-126); ANION GAP 13 (5-19); ASPARTATE AMINO TRANSFERASE 25 U/L (14-36); BILIRUBIN,DIRECT 0.3 mg/dL (0.0-0.4); BILIRUBIN,TOTAL 0.6 mg/dL (0.2-1.3); BLOOD UREA NITROGEN 9 mg/dL (7-20); CALCIUM 8.9 mg/dL (8.4-10.2); CARBON DIOXIDE 15 mmol/L (22-30); CHLORIDE 106 mmol/L (98-107); CREATININE RESULT 0.75 mg/dL (0.52-1.25); GLUCOSE 185 mg/dL (75-110); HEMOGLOBIN 11.5 g/dL (12.0-15.5); HGB HCT DIFFERENCE 0.5; LDH 520 U/L (313-618); MEAN CORPUSCULAR HEMOGLOBIN 29.4 pg (27.0-33.4); MEAN CORPUSCULAR HGB CONC 33.8 g/dL (32.0-36.0); MEAN CORPUSCULAR VOLUME 87 fl (80-97); POTASSIUM 3.5 mmol/L (3.6-5.0); RED BLOOD COUNT 3.91 10^6/uL (3.72-5.28); RED CELL DISTRIBUTION WIDTH 13.8 % (11.5-14.0); SODIUM 134.1 mmol/L (137-145); URIC ACID 6.1 mg/dL (2.5-6.2)
[2016-11-24 14:22] LABS: BAND NEUTROPHILS % (MANUAL) 2 % (3-5); BASOPHILS % (MANUAL) 0 % (0-2); EOSINOPHILS % (MANUAL) 0 % (0-6); LYMPHOCYTES % (MANUAL) 5 % (13-45); TOTAL CELLS COUNTED 100
[2016-11-24 14:23] LABS: POLYCHROMASIA SLIGHT; TOXIC GRANULATION SLIGHT
--- NOTE | 2016-11-24 19:56 | L&D Progress Notes ---
PROGRESS NOTES Datetime Report Generated by CPN: 11/24/2016 19:55 PROGRESS NOTE Impression: Arrest of Dilatation/Descent; Reassuring Heart Rate Procedures: Sterile Vag Exam Plan: Deliver- Section Informed Consent Obtained: Vaginal Delivery; Induction of Labor; Risks, Benefits and Alternatives Discussed Comment: No further progress made with dilation-pronounced caput. Discussed probable need for section including risks and benefits. Will inform Dr Colt of arrest of cervical dilation. VAGINAL EXAM Dilatation: 1 Effacement: 0 Station: -3 MEMBRANES Membranes: Intact FETUS A Estimated Weight (gm): 3026 Presentation: Vertex SIGNATURE SIGNATURE: [id number] SIGNATURE: [id number] SIGNATURE: [id number] SIGNATURE: [id number] Assignment: Lucila Gregory MD Signature: with User ID: [email or web address] : with User ID: [email or web address] : I personally evaluated and examined the patient in conjunction with the MLP and agree with the assessment, treatment plan and disposition.
[2016-11-24] MEDS ORDERED: CITRIC ACID/SODIUM CITRATE ORAL SOLN 15 ML UDCUP ONE (20:20)
[2016-11-24] MEDS ORDERED: CEFAZOLIN 2 GM/D5W RTU 2 GM/50 ML RTUPB IV ONE (20:20)
[2016-11-24] MEDS ORDERED: LIDOCAINE 2% INJ-PF (20 MG/ML) 10 ML AMPUL ONE ×2 (20:20→20:21)
[2016-11-24] MEDS ORDERED: MIDAZOLAM 2 MG/2 ML INJ ONE (21:37)
[2016-11-24] MEDS ORDERED: OXYTOCIN/NORMAL SALINE 20 UNIT/1,000 ML RTUINJ ONE (21:37)
[2016-11-24] MEDS ORDERED: FENTANYL CITRATE INJ/PF 100 MCG/2 ML AMPUL ONE (21:37)
[2016-11-24] MEDS ORDERED: OXYTOCIN 10 UNIT/ML VIAL ONE (21:37)
[2016-11-24] MEDS ORDERED: ONDANSETRON HCL INJ/PF 4 MG/2 ML SDV ONE (21:37)
[2016-11-24] MEDS ORDERED: RINGERS SOLUTION,LACTATED 1,000 ML IV PRN (23:07)
[2016-11-24] MEDS ORDERED: MORPHINE SULFATE 10 MG/ML INJ IV PRN ×2 (23:07→23:29)
[2016-11-24] MEDS ORDERED: PROMETHAZINE HCL INJ 25 MG/1 ML VIAL IV PRN ×3 (23:07→23:29)
[2016-11-24] MEDS ORDERED: SIMETHICONE 80 MG TAB.CHEW PO PRN (23:07)
[2016-11-24] MEDS ORDERED: ACETAMINOPHEN 325 MG TABLET PO PRN (23:07)
[2016-11-24] MEDS ORDERED: OXYCODONE-ACETAMINOPHEN 5-325 MG TABLET PO PRN ×2 (23:07)
[2016-11-24] MEDS ORDERED: OXYTOCIN/NORMAL SALINE 20 UNIT/1,000 ML RTUINJ IV PRN (23:07)
[2016-11-24] MEDS ORDERED: MEASLES,MUMPS&RUBELLA VACC/PF 0.5 ML VIAL SUBCUT PRN (23:07)
[2016-11-24] MEDS ORDERED: ACETAMINOPHEN 100 ML IV PRN (23:07)
[2016-11-24] MEDS ORDERED: DIPH/PERTUSS(ACELL)/TETANUS VAC/PF 0.5 ML SYR (>=10YO) IM PRN (23:07)
[2016-11-24] MEDS ORDERED: MEPERIDINE HCL/PF INJ 25 MG/1 ML DISP.SYRIN ONE (23:23)
[2016-11-24] MEDS ORDERED: HYDRALAZINE HCL INJ/PF 20 MG/1 ML SDV IV PRN (23:28)
[2016-11-24] MEDS ORDERED: FENTANYL CITRATE INJ/PF 100 MCG/2 ML AMPUL IV PRN ×3 (23:29)
[2016-11-24] MEDS ORDERED: DIPHENHYDRAMINE HCL 50 MG/ML VIAL IV PRN (23:29)
[2016-11-24] MEDS ORDERED: MEPERIDINE HCL/PF INJ 25 MG/1 ML DISP.SYRIN IV PRN (23:29)
--- NOTE | 2016-11-24 23:32 | OPERATIVE REPORT E ---
Operative Report NAME: GALEN NUNEZ : 1985 AGE: 31Y DATE OF SURGERY: 11/24/2016 ROOM: LR200 PREOPERATIVE DIAGNOSES: 1. Intrauterine at 37 weeks 4 days. 2. Superimposed preeclampsia. 3. Failure to progress. 4. Failed induction. POSTOPERATIVE DIAGNOSES: 1. Intrauterine at 37 weeks 4 days. 2. Superimposed preeclampsia. 3. Failure to progress. 4. Failed induction. PROCEDURE: Low transverse hysterotomy section. SURGEON: DWAIN ASHTON M.D. ANESTHESIA: Dr. Viveros with epidural. FINDINGS: Male infant, cephalic presentation, direct occiput posterior position. Apgars of 9 and 9. COMPLICATIONS: None. ESTIMATED BLOOD LOSS: 600 mL. SPECIMENS REMOVED: None. PROCEDURE IN DETAIL: The patient was taken to the operating room and prepared and draped in a normal sterile fashion in a supine position with a leftward tilt. A transverse skin incision was made with a scalpel and carried through to underlying layer of fascia. With the same scalpel, the fascia was incised at the midline and extended laterally with Mayos. The fascia was dissected bluntly from the rectus muscle and the rectus muscle was divided and the peritoneal cavity was entered bluntly. With good visualization of the bladder and the uterus, the bladder blade was inserted and the hysterotomy was nicked with the scalpel and extended laterally with surgeon finger pressure. The was then delivered atraumatically. The nose and mouth were suctioned with a suction bulb, the cord was clamped and cut, and the infant was handed off to awaiting pediatricians. The cord blood was collected. The placenta was removed manually. The uterus was exteriorized and cleared of clots and debris. The hysterotomy was closed with 0 Monocryl in a running locked fashion. A second layer of the same suture was used for imbrication to ensure hemostasis. The uterus was then returned to the abdomen. The peritoneal cavity was cleared of clot and debris. The rectus muscle was reapproximated with a mattress stitch times 2 of 2-0 chromic. The fascia was closed with 0 Vicryl. The subcutaneous layer was closed with plain catgut. The skin was closed with 4-0 Vicryl. The patient tolerated procedure well. Sponge, lap and needle counts were correct times 2. The patient was taken to recovery in stable condition. DICTATING PHYSICIAN: DWAIN ASHTON M.D. [id number] PHY#: [id number] ID: [id number] JOB#: [id number] ACCT: [id number] cc:DWAIN ASHTON M.D. > [facility]ITALAnanda
--- NOTE | 2016-11-25 00:22 | Admission Physical ---
Datetime Report Generated by CPN: 11/25/2016 00:22 CURRENT ADMISSION Chief Complaint: Scheduled Induction of Labor Indication for Induction: Chronic Hypertension; PreEclampsia Admit Plan: Admit to Unit; Initiate Labor Induction Protocol ALLERGIES Medication Allergies: No Medication Allergies: No Known Allergies (11/20/2016) Medication Allergies: No Known Allergies (11/17/2016) Medication Allergies: No Known Allergies (10/30/2016) Medication Allergies: No Known Allergies (10/16/2016) Medication Allergies: No Known Allergies (05/07/2016) Latex: No Latex Allergies OBSTETRICAL HISTORY EDC: 12/09/2016 00:00 : 1 Para: 0 Term: 0 : 0 SAB: 0 IAB: 0 Ectopic: 0 Livin Cesareans: 0 VBACs: 0 Multiple Births: 0 Gestational Diabetes: No Rh Sensitization: No Incompetent Cervix: No ALTAGRACIA: No Infertility: No ART Treatment: No Uterine Anomaly: No IUGR: No Hx Previous C/S: No Macrosomia: No Hx Loss/Stillborn: No PIH: No Hx : No Placenta Previa/Abruption: No Depression/PP Depression: No PTL/PROM: No Post Hemorrhage: No Current Procedures: Ultrasound; NST Obstetrical History Comments: G1: current SEE RECORDS Alcohol: No Marijuana : No Cocaine: No Other Illicit Drugs: No Cigarettes: Never Smoker. [id number] MEDICAL HISTORY Diabetes: No Blood Transfusion: No Pulmonary Disease (Asthma, TB): No Breast Disease: No Hypertension: Yes Manager Target Surgery: No Heart Disease: No Hosp/Surgery: No Autoimmune Disorder: No Anesthetic Complications: No Kidney Disease: No Abnormal Pap Smear: No Neuro/Epilepsy: No Psychiatric Disorders: No Other Medical Diseases: No Hepatitis/Liver Disease: No Significant Family History: No Varicosities/Phlebitis: No Trauma/Violence : No Thyroid Dysfunction: No Medical History Comments: CHTN with superimposed pre-e this INFECTIOUS HISTORY Gonorrhea: No Genital Herpes: No Chlamydia: No Tuberculosis: No Syphilis: No Hepatitis: No HIV/AIDS Exposure: No Rash or Viral Illness: No HPV: No PHYSICAL EXAM General: Normal HEENT: Normal Neurologic: Normal Thyroid: Normal Heart: Normal Lungs: Normal Breast: Deferred Back: Normal Abdomen: Normal Genitourinary Exam: Normal Extremities: Normal DTRs: Normal Pelvic Type: Adequate Physical Exam Comments: pelvis unproven Vital Signs: Reviewed Details Vital Signs: Mild range BPs VAGINAL EXAM Dilatation: 1 Effacement: 0 Station: -3 MEMBRANES Membranes: Intact FETUS A EGA: 37.4 Monitoring: External US FHR- Baseline: 130 Variability: Moderate 6-25bpm Accelerations: 15X15 Decelerations: None FHR Category: Category I Estimated Weight (gm): 3026 Presentation: Vertex Admit Comment: 31yo at 37+4ega presents for IOL with CHTN and superimposed PreE. Cvx unfavorable therefore will initiate IOL with cervidil. GBS positive - PCN for GBS prophy. Currently on Procardia XL 60mg for BPs. Maternal Obesity - early 1 hr abnl, 3 hr nl (early and 28wks). Pelvis adequate For DANY. EFW 6#11oz by US o 11/17. Vertex presentation. Anticpate . Will get [facility] labs. PLANS FOR LABOR AND DELIVERY Labor and Delivery: None Pain Management: None Feeding Preference: Breast Benefit of Breast Feed Discussed: Yes Circumcision: Yes INFORMED CONSENT Informed Consent Obtained: Vaginal Delivery; Induction of Labor; Risks, Benefits and Alternatives Discussed Signature: with User ID: [email or web address] : I personally evaluated and examined the patient in conjunction with the MLP and agree with the assessment, treatment plan and disposition.
[2016-11-25] MEDS ORDERED: KETOROLAC TROMETHAMINE INJ/PF 30 MG/1 ML SDV ONE (01:14)
[2016-11-25] MEDS ORDERED: ACETAMINOPHEN 100 ML IV ONE (01:14)
[2016-11-25] MEDS ORDERED: MORPHINE SULFATE 10 MG/ML INJ IV PRN (01:25)
--- NOTE | 2016-11-25 01:30 | Delivery Summary ---
Del Sum A-C Datetime Report Generated by CPN: 11/25/2016 01:30 DELIVERY PERSONNEL DELIVERY PERSONNEL: [phone] Delivery Doctor:: Lucila Gregory MD Anesthesiologist:: Richard Viveros MD STEFFEN HOUSE SUPERVISOR:: Yohan Cardoza CRNA Labor and Delivery Nurse:: Cody Benton RN Labor and Delivery Nurse:: Antoinette Huerta RN Neonatal Nurse Practitioner:: RACHEAL Suero Nursery Nurse:: Michelle Weaver RN Nursery Nurse:: Alejandra Flores RN Improvement Advisor/GUARD MANAGER: ST Shayla Improvement Advisor/GUARD MANAGER: ST Yesenia MATERNAL INFORMATION Delivery Anesthesia: Epidural Medications After Delivery: Pitocin Bolus-Please Comment Meds After Delivery Comment: Pitocin 20 units in 1000mL NS x2 Estimated Blood Loss (ml): 600 Maternal Complications: Other Other Maternal Complications: Failure to progress LABOR SUMMARY EDC: 12/09/2016 00:00 No. Babies in Womb: 1 Attempted: No Labor Anesthesia: Epidural LABOR INFORMATION Onset of Labor: 11/23/2016 21:24 Cervical Ripening Agents: Cervidil Oxytocin: Induction Group B Beta Strep: positive Steroids Given: None Reason Steroids Not Administered: Not Applicable MEMBRANES Membranes Rupture Method: Artificial Rupture of Membranes: 11/23/2016 15:00 Length of Rupture (hr): 31.40 Amniotic Fluid Color: Clear Amniotic Fluid Amount: Scant Amniotic Fluid Odor: Normal STAGES OF LABOR Stage 3 hr: 0 Stage 3 min: 2 Total Time in Labor hr: 25 Total Time in Labor min: 2 VAGINAL DELIVERY Episiotomy: None Laceration Extension: N/A Laceration Type: None Laceration Repair: Not Applicable Sharps Count Correct: N/A CSECTION DELIVERY Primary Indication: Failure of Descent CSection Urgency: Non-Scheduled CSection Incidence: Primary Labor: Labor Elective: Nonelective CSection Incision: Lower Uterine Transverse BABY A INFORMATION Infant Delivery Date/Time: 11/24/2016 22:24 Method of Delivery: Born in Route : No : N/A Forceps: N/A Vacuum Extraction: N/A Shoulder Dystocia : No PRESENTATION/POSITION BABY A Presentation: Cephalic Cephalic Presentation: Vertex Vertex Position: Direct occipital posterior Breech Presentation: N/A PLACENTA INFORMATION BABY A Placenta Delivery Time : 11/24/2016 22:26 Placenta Method of Delivery: Manual Removal Placenta Status: Delivered SCORES BABY A Heart Rate 1 min: >100 bpm Resp Effort 1 min: Good Cry Reflex Irritability 1 min: Cough or Sneeze or Pulls Away Muscle Tone 1 min: Active Motion Color 1 min: Body [place], Extremities Blue Resuscitation Effort 1 min: Tactile Stimulation SCORE 1 MIN: 9 Heart Rate 5 min: >100 bpm Resp Effort 5 min: Good Cry Reflex Irritability 5 min: Cough or Sneeze or Pulls Away Muscle Tone 5 min: Active Motion Color 5 min: Body [place], Extremities Blue Resuscitation Effort 5 min: Tactile Stimulation SCORE 5 MIN: 9 INFANT INFORMATION BABY A Gestational Age at Delivery: 37.6 Gestational Status: Early Term- 37- 38.6 Weeks Outcome : Liveborn Condition : Stable Infant Sex: Male WEIGHT/LENGTH BABY A Birthweight (gm): 3325 Infant Weight (lb): 7 Infant Weight (oz): 5 Length (in): 21.25 Infant Length (cm): 53.98 CORD INFORMATION BABY A No. Cord Vessels: 3 Nuchal Cord : N/A Cord Blood Taken: Yes-For Storage (Mom's Blood type +) Infant Suction: None ASSESSMENT BABY A Skin to Skin: Yes Skin to Skin Time (min): 90 Senior Network Security Architect/ALS Called : No Care By: Elyo SPRINGER, Ximena Weaver RN, Eloy Flores RN SIGNATURES : I personally evaluated and examined the patient in conjunction with the MLP and agree with the assessment, treatment plan and disposition.
[2016-11-25 05:49] LABS: HEMATOCRIT 30.4 % (36.0-47.0); HEMOGLOBIN 10.4 g/dL (12.0-15.5); HGB HCT DIFFERENCE 0.8; MEAN CORPUSCULAR HEMOGLOBIN 30.4 pg (27.0-33.4); MEAN CORPUSCULAR HGB CONC 34.3 g/dL (32.0-36.0); MEAN CORPUSCULAR VOLUME 89 fl (80-97); RED BLOOD COUNT 3.43 10^6/uL (3.72-5.28); RED CELL DISTRIBUTION WIDTH 13.9 % (11.5-14.0)
[2016-11-25] MEDS ORDERED: KETOROLAC TROMETHAMINE INJ/PF 30 MG/1 ML SDV IV SCH (06:00)
[2016-11-25] MEDS ORDERED: NIFEDIPINE 30 MG TAB.ER.24 PO SCH (08:00)
--- NOTE | 2016-11-25 10:01 | PDOC PROGRESS REPORT ---
Subjective-OB Subjective: Post Delivery Day:1 31 year old. Denies any needs at this time, pain well controlled has not been up yet. Physical Exam (OB) Vital Signs: Temp Pulse Resp BP Pulse Ox 98.0 F 81 20 155/92 H 98 11/25/16 08:11 11/25/16 08:11 11/25/16 08:11 11/25/16 08:11 11/25/16 08:11 Intake & Output 11/24/16 11/25/16 11/26/16 06:59 06:59 06:59 Output Total 900 Balance -900 - PIH/Pre-Eclampsia Clonus: Negative Headache: Absent Epigastric Pain: No Visual Changes: No - Dressing Removed: No Incision: Dressing - Lochia Lochia Amount: Scant < 10 ml Lochia Color: Rubra/Red - Abdomen Description: Soft, Round Hernia Present: No Fundal Description: Firm, Midline Fundal Height: u/u - u/2 Objective-Diagnostic Laboratory: 11/25/16 05:10 11/24/16 13:19 11/24/16 11/24/16 11/25/16 13:19 13:19 05:10 WBC 24.0 H D 18.0 H RBC 3.91 3.43 L Hgb 11.5 L 10.4 L Hct 34.0 L 30.4 L MCV 87 89 MCH 29.4 30.4 MCHC 33.8 34.3 RDW 13.8 13.9 Plt Count 233 214 Seg Neutrophils % Not Reportable Lymphocytes % Not Reportable Monocytes % Not Reportable Eosinophils % Not Reportable Basophils % Not Reportable Absolute Neutrophils Not Reportable Absolute Lymphocytes Not Reportable Absolute Monocytes Not Reportable Absolute Eosinophils Not Reportable Absolute Basophils Not Reportable Sodium 134.1 L Potassium 3.5 L Chloride 106 Carbon Dioxide 15 L Anion Gap 13 BUN 9 Creatinine 0.75 Est GFR ( Amer) > 60 Est GFR (Non-Af Amer) > 60 Glucose 185 H Uric Acid 6.1 Calcium 8.9 Total Bilirubin 0.6 AST 25 ALT 34 Alkaline Phosphatase 141 H Total Protein 6.0 L Albumin 3.2 L Assessment and Plan(PN) - Assessment and Plan (1) Status post primary low transverse section Is this a current diagnosis for this admission?: Yes Plan: routine pp care - Time Spent with Patient Time with patient: Less than 15 minutes Critical Time spent with patient: Less than 15 minutes Medications reviewed and adjusted accordingly: Yes - Disposition Anticipated Discharge: Home Within: within 24 hours
[2016-11-25] MEDS: KETOROLAC TROMETHAMINE INJ/PF 30 MG/1 ML SDV IV SCH ×2 (10:27→17:36)
[2016-11-25] MEDS: DOCUSATE SODIUM 100 MG CAPSULE PO SCH ×2 (10:27→17:36)
[2016-11-25] MEDS: PRENATAL VITAMIN W-O CA NO5/FE FUMARATE/FA CAPSULE PO SCH (10:27)
[2016-11-25] MEDS ORDERED: NIFEDIPINE 30 MG TAB.ER.24 PO ONE (12:00)
[2016-11-25] MEDS: NIFEDIPINE 30 MG TAB.ER.24 PO SCH (21:10)
[2016-11-26] MEDS: IBUPROFEN 800 MG TABLET PO SCH ×4 (05:09→18:33)
[2016-11-26] MEDS: NIFEDIPINE 30 MG TAB.ER.24 PO SCH (09:39)
[2016-11-26] MEDS: PRENATAL VITAMIN W-O CA NO5/FE FUMARATE/FA CAPSULE PO SCH (09:39)
[2016-11-26] MEDS: DOCUSATE SODIUM 100 MG CAPSULE PO SCH ×2 (09:39→18:32)
--- NOTE | 2016-11-26 12:43 | PDOC DISCHARGE SUMMARY ---
Final Diagnosis Discharge Date: 11/26/16 - Final Diagnosis (1) Chronic hypertension affecting Is this a current diagnosis for this admission?: Yes (2) Status post primary low transverse section Is this a current diagnosis for this admission?: Yes Discharge Data - Discharge Medication Home Medications: Nifedipine [Procardia XL 30 mg Tablet] 3 tab PO DAILY 10/16/16 [facility] #116/Iron Fumarate/FA/Dha [Expecta Combo Pack] 1 tab PO DAILY 10/30 Aspirin 81 mg PO DAILY PRN 11/17/16 Reason(s) for Admission: Induction of Labor Procedures: NST, Management of Obstetric Complications Intrapartum Procedure(s): Spontaneous Vaginal Delivery - Diagnosis Test Laboratory: Temp Pulse Resp BP Pulse Ox 98.1 F 80 15 136/87 H 98 11/26/16 11:13 11/26/16 11:13 11/26/16 11:13 11/26/16 11:13 11/26/16 11:13 11/22/16 11/22/16 11/24/16 18:13 18:20 13:19 RBC 3.95 3.91 Hgb 11.9 L 11.5 L Hct 34.8 L 34.0 L Urine Opiates Screen NEGATIVE 11/25/16 05:10 RBC 3.43 L Hgb 10.4 L Hct 30.4 L Urine Opiates Screen - Discharge information/Instructions Discharge Activity: Balance Activity w/Rest, Pelvic Rest, No tub bath Discharge Diet: Regular Disposition: HOME, SELF-CARE Follow [facility] with: [facility] in: 5, Weeks
[2016-11-26 16:10] VITALS: BP 129/82
== END 2016-11-26 20:35 | disposition home or self-care (01) | DRG 765 ==
LOC: LR 17:53 → 2S 11-24 23:45 → LR 11-25 00:24 → 2S 11-25 01:50
PROVIDERS: ADMIT Student in an Organized Health Care Education/Training Program; ATTEND Obstetrics & Gynecology
PROC: 10907ZC Drainage of Amniotic Fluid, Therapeutic from Products of Conception, Via Natural or Artificial Opening (ICD-10-PCS; 2016-11-22)
PROC: 3E0P7GC Introduction of Other Therapeutic Substance into Female Reproductive, Via Natural or Artificial Opening (ICD-10-PCS; 2016-11-22)
PROC: 3E033VJ Introduction of Other Hormone into Peripheral Vein, Percutaneous Approach (ICD-10-PCS; 2016-11-22)
PROC: 10D00Z1 Extraction of Products of Conception, Low, Open Approach (ICD-10-PCS; principal; 2016-11-24)
PROC: 4A1HXCZ Monitoring of Products of Conception, Cardiac Rate, External Approach (ICD-10-PCS; 2016-11-24)
DX: O61.0 Failed medical induction of labor (principal); Z68.41 Body mass index [BMI] 40.0-44.9, adult; O10.92 Unspecified pre-existing hypertension complicating childbirth; O11.4 Pre-existing hypertension with pre-eclampsia, complicating childbirth; O99.824 Streptococcus B carrier state complicating childbirth; O99.214 Obesity complicating childbirth; E66.9 Obesity, unspecified; Z37.0 Single live birth; Z3A.37 37 weeks gestation of pregnancy
CPT/HCPCS: 1961; 36415; 80053; 80307; 81001; 83615; 84550; 85025; 85027; 86592; 86850; 86900; 86901; 94799; C1726; J0131; J0360; J0690; J1885; J2175; J2250; J2270; J2300; J2405; J2540; J2550; J2590; J3010; J3490